=== PATIENT | male | born 1935 | race Caucasian/White ===

== ENCOUNTER → 2016-07-26 | Outpatient (CLI) | payer BC ==
[~2016-07-26] MED LIST: ALL300 PO; ASPI81TA21 PO; CEPH500C2 PO; CLOP1TAB54 PO; DBT/5 PO; FURO20TA PO; GABA-112 PO; HYDR-3419 PO; INSULIN NPH; LATA0.009 OPB; LISI-725 PO; METF1000 PO; METOPROLOL ER; PROMETHAZINE 25 MG; SIMV20TA2 PO; [UNRECOGNIZED DRUG - OTHER]; albuterol inhaler INH
[2016-07-26 13:09] LABS: HEMATOCRIT 39.8 % (42-52); MEAN CORPUSCULAR HEMOGLOBIN 32.5 pg (25-34); MEAN CORPUSCULAR HGB CONC 34.2 g/dl (32-36); MEAN PLATELET VOLUME 9.9 fL (7.4-10.4); PLATELET COUNT 158 K/uL (130-400); RED BLOOD COUNT 4.19 M/uL (4.7-6.1); WHITE BLOOD COUNT 7.21 K/uL (4.8-10.8)
[2016-07-26 13:11] LABS: INR 1.1 (0.9-1.1); PARTIAL THROMBOPLASTIN RATIO 1.1; PROTHROMBIN TIME (PATIENT) 11.4 SECONDS (9.0-12.0)
[2016-07-26 13:26] LABS: BLOOD UREA NITROGEN 16 mg/dl (7-18); BUN/CREATININE RATIO 13.6 (10-20); CALCIUM 9.1 mg/dl (8.5-10.1); CARBON DIOXIDE 30 mmol/L (21-32); CHLORIDE 105 mmol/L (98-107); GLUCOSE 191 mg/dl (70-99); POTASSIUM 4.7 mmol/L (3.5-5.1); SODIUM 140 mmol/L (136-145)
== END | disposition home or self-care (01) ==
LOC: C.LABMFLN 11:39
PROVIDERS: ATTEND Internal Medicine Cardiovascular Disease
DX: Z01.812 Encounter for preprocedural laboratory examination (principal)

== ENCOUNTER → 2016-07-28 | Day surgery (SDC) | payer BC ==
[~2016-07-28] VITALS: Ht 182.9 cm; Wt 89.0 kg
[~2016-07-28] MED LIST changes: +ACETAMINOPHEN 325 MG TAB PO PRN; +BACITRACIN 50000 UNIT VIAL ONE; +BACITRACIN OINT 0.9 GM PKT ONE; +CEFAZOLIN 1000MG/55 ML D5W 55 ML IV SCH; +FENTANYL CITRATE INJ 50 MCG/1 ML 2 ML VIAL ONE; +KEFZOL SPECIAL PROCEDURE STOCK 1 GM ADDVIAL IV ONE; +KETOROLAC TROMETHAMINE 10 MG TAB PO PRN; +LACTATED RINGER'S 1000ML IV SCH; +LIDOCAINE HCL 1% 20 ML VIAL ONE; +MIDAZOLAM HCL 5 MG/ML 1 ML VIAL ONE
[2016-07-28 13:35] VITALS: BP 141/81; PULSE 60; TEMP 36.7; O2SAT 99; BMI 26.0
[2016-07-28 14:08] VITALS: Ht 182.9 cm; Wt 89.0 kg
--- NOTE | 2016-07-28 14:48 | Procedure Note ---
Pre-Mod Sedation Assessment General Date of Moderate Sedation: Jul 28, 2016. Vital Signs: Vital Signs Past 12 Hours Date Time Temp Pulse Resp B/P Pulse Ox O2 Delivery O2 Flow Rate FiO2 07/28/16 13:35 36.7 60 22 141/81 99 Room Air Review Cardiovascular: regular rate, rhythm Abdomen: normal bowel sounds Lungs: lungs clear Pre-Sedation Airway Assessment Oral Cavity: Dentures Smoking Status: Former Smoker Procedure Planning Contraindications-for Mod Sed: None Yes Notes The planned sedation has been discussed with the patient and consent obtained. I have identified the patient, determined the appropriateness of sedation and have assessed the patient immediately prior to the procedure. All medicine(s) and interventions are by my order.
--- NOTE | 2016-07-28 16:00 | Procedure Note ---
Post-Mod Sedation Assessment General Date of Moderate Sedation Jul 28, 2016. Vital Signs: Vital Signs Past 12 Hours Date Time Temp Pulse Resp B/P Pulse Ox O2 Delivery O2 Flow Rate FiO2 07/28/16 13:35 36.7 60 22 141/81 99 Room Air Review - Discharge Criteria Vital Signs Stable: Yes Alert/Oriented/Conversant: Yes Returned to Baseline Mental St: Yes Nausea Absent/Minimal: Yes Pain/Discomfort/Absent/Minimal: Yes Normal/Baseline Respirations: Yes Active Bleeding?: No
--- NOTE | 2016-07-28 16:02 | Cardiology Procedure Brief Nt ---
Preliminary Cardiology Note Procedure Date Jul 28, 2016. Pre-Procedure Diagnosis ICD JUDE Post-Procedure Diagnosis same Procedure(s) Performed Biventricular ICD replacement [employer] Dr. Lee Skip Miner Blasting(s) none Estimated Blood Loss 20 cc Preliminary Findings Good lead measurements, successful replacement of device only Recommendations Monitor briefly and discharged Specimens Old ICD, return to Medtronic Anesthesia local with sedation Complication(s) None Disposition MTU
[2016-07-28 16:09] VITALS: BP 118/81; PULSE 80; TEMP 36.7; O2SAT 96
[2016-07-28 16:30] VITALS: BP 116/72; PULSE 68; TEMP 36.4; O2SAT 97
[2016-07-28 16:48] VITALS: BP 140/74; PULSE 76; TEMP 36.5; O2SAT 95
[2016-07-28 17:10] VITALS: BP_SYST 115; BP_DIAS 16; BP_DIAS 66; PULSE 75; TEMP 36.6; O2SAT 96
--- NOTE | 2016-07-28 17:13 | Discharge Instructions ---
Discharge Instructions Date of Service Jul 28, 2016. Admission Reason for Admission: ICD battery depletion Discharge Discharge Diagnosis / Problem: ICD replacement Discharge Goals Goal(s): Improve disease control Activity Recommendations Activity Limitations: resume your previous activity . Instructions / Follow-Up Instructions / Follow-Up ACTIVITY RECOMMENDATIONS: * Do not raise affected arm over head for 2 weeks. SPECIAL CARE INSTRUCTIONS: * If bleeding occurs, apply direct pressure to area for 5 minutes. * Call your doctor if you have severe pain, fever, drainage or bleeding at site. * Keep dressing on and dry. * Keep any scheduled doctor's appointment. * Implant Card - hand held device with website information given. SKIN IRRITATION: * You may experience some redness and/or swelling in the area where radiation was administered. If any skin irritation occurs, please contact your family physician. FOLLOW UP VISIT: Dr. Lee, 07/29/2016, 11:00 AM Current Hospital Diet Patient's current hospital diet: AHA Diet (Heart Healthy) Discharge Diet Recommended Diet: AHA Diet (Heart Healthy) Pending Studies Studies pending at discharge: no Medical Emergencies . Who to Call and When: Medical Emergencies: If at any time you feel your situation is an emergency, please call 911 immediately. . Non-Emergent Contact Non-Emergency issues call your: Primary Care Provider . . "Provider Documentation" section prepared by Cristian Lee. VTE Core Measure Inpt VTE Proph given/why not?: Treatment not indicated
[2016-07-28 17:39] VITALS: BP 110/83; PULSE 77; TEMP 36.6; O2SAT 96
--- NOTE | 2016-08-05 03:49 | OPERATIVE REPORT ---
DATE OF OPERATION: 07/28/2016 PREOPERATIVE DIAGNOSIS: Implantable cardioverter defibrillator, elective replacement indicator. POSTOPERATIVE DIAGNOSIS: Same. PROCEDURE: Biventricular ICD replacement. SURGEON: Cristian Lee MD ANESTHESIA: Local with sedation. HISTORY OF PRESENT ILLNESS: This is an 81-year-old gentleman who has a history of ischemic cardiomyopathy and a biventricular ICD. His ICD was upgraded to a biventricular device on 10/20/2011. He has reached [facility] and his device needs to be replaced. OPERATION AND FINDINGS: After obtaining informed consent for the procedure, he was brought to the laboratory on the afternoon of 07/28/2016 being n.p.o. after midnight. He was identified in the laboratory, prepped and draped in standard sterile manner for a left-sided ICD replacement. The left prepectoral region was anesthetized with 1% lidocaine local anesthetic and once adequate anesthesia was obtained, a 6 cm incision was made through the old implant scar and carried down to the ICD generator. The generator was dissected free of tissue and explanted. The device was disconnected from the leads. The device was confirmed to be a Medtronic Protecta XT CRTD model [id number], serial number [id number], implanted 10/20/2011. This device will be returned to [employer]. The atrial lead is a Medtronic model 5076, serial number [id number], implanted 06/16/2009. This lead was evaluated in bipolar configuration at a pulse width of 0.5 milliseconds and the pacing threshold was 0.6 volts with a current of 1.4 milliamp, 5-volt lead impedance was 382 ohms and P-waves were sensed at 2.3 millivolts. This is a good threshold and this lead can be used. The right ventricular lead is a Medtronic model 6947, serial number [id number], implanted 06/16/2009. This lead was evaluated in bipolar configuration at a pulse width of 0.5 milliseconds. The pacing threshold was 0.5 volts with a current of 1.4 milliamp, 5-volt lead impedance was 395 ohms. R waves cannot be detected due to heart block. The left ventricular lead is a Medtronic model 4196, serial number [id number], implanted 10/20/2011. This lead was tested in the configuration of LV tip to RV coil, in this configuration the pacing threshold was 1.9 volts at 1.0 millisecond pulse width, with a current of 1.7 milliamp. 5-volt lead impedance was 1202 ohms, and R waves could not be tested due to heart block. This lead can also be used. The new ICD (Medtronic Amplia) was attached to the leads and found to be functioning normally. It was placed in the pocket with the leads coiled beneath it and the incision was closed with a running subcutaneous closure of 3-0 absorbable suture followed by a running subcuticular skin closure of 4-0 absorbable suture. Bacitracin ointment was placed on incision and pressure dressing applied. The patient tolerated the procedure well, there were no complications and estimated blood loss was 20 mL. The patient was transferred to the ambulatory unit for monitoring and subsequent discharge. Details of the explanted ICD and the chronic leads are noted above. The new ICD is a Medtronic Amplia MRI CRTD SureScan, model [id number], serial number [id number]. The ICD was reprogrammed in the laboratory to final settings. BAKARI
== END | disposition home or self-care (01) ==
LOC: C.ACU 12:20
PROVIDERS: ATTEND Internal Medicine Cardiovascular Disease
DX: Z45.02 Encounter for adjustment and management of automatic implantable cardiac defibrillator (principal); Z87.891 Personal history of nicotine dependence; I25.5 Ischemic cardiomyopathy; I50.22 Chronic systolic (congestive) heart failure; Z79.82 Long term (current) use of aspirin; Z79.899 Other long term (current) drug therapy; Z79.4 Long term (current) use of insulin